=== PATIENT | female | born 1940 | race Caucasian/White ===

== ENCOUNTER 2020-08-11 19:17 | Inpatient (IN) | payer MEDICARE ==
[~2020-08-11] VITALS: Ht 167.6 cm; Wt 62.6 kg
[2020-08-11 21:52] LABS: RED BLOOD COUNT 4.97 M/UL (4.00-5.10); WHITE BLOOD COUNT 12.4 K/UL (4.5-11.0)
[2020-08-11 22:15] LABS: BUN/CREATININE RATIO 29 (0-10)
[2020-08-12 05:21] LABS: HEMOGLOBIN 14.3 gm/dl (12.3-15.3); RED BLOOD COUNT 4.51 M/UL (4.00-5.10); WHITE BLOOD COUNT 13.1 K/UL (4.5-11.0)
[2020-08-12 05:40] LABS: BUN/CREATININE RATIO 32 (0-10)
[2020-08-12] MEDS ORDERED: LIPITOR TAB 2020 MG PO (08:02)
[2020-08-12] MEDS ORDERED: PAROXETINE HCL20 MG PO (08:02)
[2020-08-12] MEDS ORDERED: PANTOPRAZOLE SO20 MG PO (08:03)
[2020-08-12] MEDS ORDERED: AMLODIPINE BESYL5 MG PO (08:03)
[2020-08-12] MEDS ORDERED: LEVOTHYROXINE88 MC1 PO (08:04)
[2020-08-13 06:08] LABS: HEMOGLOBIN 12.2 gm/dl (12.3-15.3); RED BLOOD COUNT 3.8 M/UL (4.00-5.10); WHITE BLOOD COUNT 10.3 K/UL (4.5-11.0)
[2020-08-13 06:34] LABS: BUN/CREATININE RATIO 24 (0-10)
[2020-08-14 06:29] LABS: RED BLOOD COUNT 3.78 M/UL (4.00-5.10)
[2020-08-14 06:41] LABS: WHITE BLOOD COUNT 7.5 K/UL (4.5-11.0)
[2020-08-14 06:55] LABS: BUN/CREATININE RATIO 21 (0-10)
[2020-08-15 04:22] LABS: HEMOGLOBIN 12.6 gm/dl (12.3-15.3); RED BLOOD COUNT 3.93 M/UL (4.00-5.10); WHITE BLOOD COUNT 6.1 K/UL (4.5-11.0)
[2020-08-15 04:39] LABS: BUN/CREATININE RATIO 14 (0-10)
[2020-08-15] MEDS ORDERED: K-DUR TAB 10 M10 MEQ PO (09:06)
[2020-08-15] MEDS ORDERED: ZOFRAN 4 MG TAB4 MG PO (09:06)
[2020-08-15] MEDS ORDERED: AMLODIPINE BESYL5 MG PO (09:21)
== END 2020-08-15 14:35 | disposition home or self-care (01) | DRG 336 ==
LOC: ER1 19:17 → CDU 08-12 01:26 → ZEROF 08-12 09:27 → M/S 08-12 12:19 → CDU 08-12 12:19 → M/S 08-12 15:19
PROVIDERS: Family Medicine; Internal Medicine; Physician Assistant; Surgery; ADMIT Internal Medicine
PROC: 0DN80ZZ Release Small Intestine, Open Approach (ICD-10-PCS; principal; 2020-08-12 12:50)
DX: K56.50 Intestinal adhesions [bands], unspecified as to partial versus complete obstruction (principal); N30.00 Acute cystitis without hematuria; E87.2 Acidosis; E87.6 Hypokalemia; I10 Essential (primary) hypertension; K21.9 Gastro-esophageal reflux disease without esophagitis; R11.2 Nausea with vomiting, unspecified; F41.9 Anxiety disorder, unspecified; E03.9 Hypothyroidism, unspecified; E78.5 Hyperlipidemia, unspecified; Z79.899 Other long term (current) drug therapy; Z20.822 Contact with and (suspected) exposure to COVID-19; K57.90 Diverticulosis of intestine, part unspecified, without perforation or abscess without bleeding; Z90.710 Acquired absence of both cervix and uterus; Z90.49 Acquired absence of other specified parts of digestive tract; Z80.0 Family history of malignant neoplasm of digestive organs; R73.03 Prediabetes; D72.829 Elevated white blood cell count, unspecified
CPT/HCPCS: 36415; 80048; 80053; 81001; 82550; 82553; 82962; 83036; 83605; 83690; 83874; 84484; 85025; 85027; 85610; 93005; 96374; 96375; 96376; 99285; C9113; J0690; J0696; J1100; J1650; J2001; J2060; J2270; J2405; J2704; J2710; J2765; J3010; J3480; J7120; U0002

== ENCOUNTER → 2020-08-21 | Outpatient (CLI) | payer MEDICARE ==
[~2020-08-21] MED LIST: AMLODIPINE BESYL5 MG PO; K-DUR TAB 10 M10 MEQ PO; LEVOTHYROXINE88 MC1 PO; LIPITOR TAB 2020 MG PO; PANTOPRAZOLE SO20 MG PO; PAROXETINE HCL20 MG PO; ZOFRAN 4 MG TAB4 MG PO
[2020-08-21 10:27] LABS: BUN/CREATININE RATIO 18 (0-10)
== END ==
LOC: LAB 09:37
PROVIDERS: Internal Medicine
DX: E87.6 Hypokalemia (principal)
CPT/HCPCS: 36415; 80048

== ENCOUNTER → 2020-10-15 | Outpatient (CLI) | payer MEDICARE | LOC: MAMO 13:54 | DX: Z53.9 Procedure and treatment not carried out, unspecified reason (principal) ==

== ENCOUNTER → 2020-11-13 | Outpatient (CLI) | payer MEDICARE | LOC: MAMO 10:00 | DX: Z12.31 Encounter for screening mammogram for malignant neoplasm of breast (principal) | CPT/HCPCS: 77063; 77067 ==

== ENCOUNTER → 2021-03-19 | Outpatient (CLI) | payer MEDICARE | LOC: CT 03-18 11:08 | DX: Z08 Encounter for follow-up examination after completed treatment for malignant neoplasm (principal); Z85.528 Personal history of other malignant neoplasm of kidney | CPT/HCPCS: Q9965; Q9967 ==

== ENCOUNTER → 2021-03-26 | Outpatient (CLI) | payer MEDICARE | LOC: EXRD 12:24 | DX: Z78.0 Asymptomatic menopausal state (principal); M85.88 Other specified disorders of bone density and structure, other site | CPT/HCPCS: 77080 ==